=== PATIENT | male | born 1955 | race Caucasian/White ===

== ENCOUNTER → 2016-08-07 | Outpatient (CLI) | payer OTHER, MEDICARE ==
[~2016-08-07] MED LIST: ASPIRIN81 M1 PO; COREG3.125 MG PO; DAYPRO600 M1 PO; DESYREL100 MG PO; DURAGESIC50 MCG/HR TD; FLEXERIL10 MG PO; GABAPENTIN300 MG PO; GABAPENTIN800 MG PO; LASIX40 MG PO; LISINOPRIL10 MG PO; MELOXICAM7.5 MG PO; MS CONTIN15 MG PO; MS CONTIN60 MG PO; NORCO 325 MG-101 TAB PO; NORCO 325 MG-51 TAB PO; NORCO 5-325 TA1 EACH PO; OXYCODONE HCL15 MG PO; OXYCONTIN40 MG PO; OXYCONTIN80 MG PO; PLAVIX75 MG PO; POTASSIUM CHLO20 ME3 PO; PRINIVIL10 MG PO; PROTONIX40 MG PO; RESTORIL15 MG PO; ROBAXIN750 MG PO; THEO-DUR; TIZANIDINE4 MG PO; TRAZODO50 MG PO; VICODIN ES 7501 TAB PO; XANAX XR1 MG PO; XANAX0.5 MG PO; XANAX1 MG; ZOCOR40 MG PO
[2016-08-07 07:47] LABS: URINE AMPHETAMINES < 1000 (1000ng/ml); URINE BARBITURATES < 200 (200ng/ml); URINE COCAINE < 300 (300ng/ml)
== END | disposition home or self-care (01) ==
LOC: LAB 07:06
PROVIDERS: Internal Medicine
DX: F19.10 Other psychoactive substance abuse, uncomplicated (principal)

== ENCOUNTER → 2019-02-25 | Outpatient (CLI) | payer OTHER, MEDICARE | END | disposition home or self-care (01) | LOC: RAD 13:36 | DX: M43.14 Spondylolisthesis, thoracic region (principal); M51.36 Other intervertebral disc degeneration, lumbar region; M50.30 Other cervical disc degeneration, unspecified cervical region; M85.88 Other specified disorders of bone density and structure, other site ==

== ENCOUNTER 2019-06-01 13:45 | Inpatient (IN) | payer OTHER, MEDICARE ==
[~2019-06-01] VITALS: Ht 167.6 cm; Wt 98.1 kg
[2019-06-01 13:46] VITALS: BP 154/69
[2019-06-01 14:31] LABS: BASO # 0.1 10*3/uL (0.0-0.1); BASO % 0.9 % (0.0-1.0); EOS # 0.4 10*3/uL (0.0-0.4); EOS % 4.9 % (1.0-4.0); HEMOGLOBIN 12.9 g/dl (14.0-18.0); LYMPH # 1.6 10*3/uL (1.3-4.4); LYMPH % 21.8 % (27.0-41.0); MEAN CELL VOLUME 92.2 fl (80.0-94.0); MEAN CORPUSCULAR HGB 30.5 pg (27.0-31.0); MEAN CORPUSCULAR HGB CONC 33.1 g/dl (33.0-37.0); MEAN PLATELET VOLUME 11.9 fl (9.6-12.3); MONO # 0.4 10*3/uL (0.1-1.0); MONO % 5.6 % (3.0-9.0); NEUT % 66.5 % (47.0-73.0); PLATELET COUNT AUTOMATED 103 10*3/uL (130-400); RED BLOOD COUNT 4.23 10*6/uL (4.50-5.90); RED CELL DISTRI WIDTH 14.5 % (0-14.5); WHITE BLOOD COUNT 7.5 10*3/uL (4.8-10.8)
[2019-06-01 14:41] LABS: ALBUMIN 2.5 gm/dl (3.1-4.5); ALKALINE PHOSPHATASE 87 U/L (45-117); BUN 6 mg/dl (7-24); CHLORIDE 106 mmol/L (98-107); CREATININE 1.02 mg/dL (0.70-1.30); SGOT/AST 45 IU/L (3-35); SGPT/ALT 28 U/L (12-78); SODIUM 138 mmol/L (136-145); TOTAL PROTEIN 6.2 gm/dL (6.4-8.2)
[2019-06-01 14:42] LABS: ACT PARTIAL THROMBO TIME 32.8 SECONDS (20.0-32.1); INTERNATIONAL NORM RATIO 1.3 (2.0-3.5)
[2019-06-01 15:34] VITALS: BP 164/72
[2019-06-01 17:39] VITALS: BP 180/82
--- NOTE | 2019-06-01 17:39 | NUR ---
CCA 63, admitted to , under the services of XAVIER Wagner DO with a diagnosis of CHRONIC LIVER DISEASE, HYPOALBUMINEMIA, CHRONIC BACK PAIN, EDEMA, ELEVATED LACTIC ACID. Chief complaint is SWELLING TO BLLE. Patient arrived via ambulance from ER. Monitor applied. Initial assessment completed. Vital signs taken and recorded. XAVIER WAGNER DO notified of admission to the unit. Orders received. See assessment for past medical history, medications and allergies. Patient and/or family oriented to unit. [facility] visitation policy reviewed. Clothing/patient valuable form completed. JOSHUA MARTINES
--- NOTE | 2019-06-01 17:53 | NUR ---
CT PREP INITIATED AT THIS TIME PER ORDER.
--- NOTE | 2019-06-01 17:57 | NUR ---
MED LIST PROVIDED BY PATIENTS .
[2019-06-01] MEDS ORDERED: GLIMEPIRIDE4 M1 PO (18:00)
[2019-06-01] MEDS ORDERED: METFORMIN HYD1000 MG PO (18:00)
[2019-06-01] MEDS ORDERED: GABAPENTIN600 MG PO (18:01)
--- NOTE | 2019-06-01 18:11 | NUR ---
ADMISSION PHOTO OBTAINED OF MOLE TO LEFT POSTERIOR SHOULDER.
--- NOTE | 2019-06-01 18:17 | NUR ---
NOTIFIED REGARDING LACTIC ACID.
--- NOTE | 2019-06-01 18:22 | NUR ---
'S ANSWERING SERVICE CALLED REGARDING CONSULT.
--- NOTE | 2019-06-01 18:51 | NUR ---
MED REC UPDATED PER POLICY.
[2019-06-01 20:00] VITALS: BP 152/72
--- NOTE | 2019-06-01 20:00 | NUR ---
RESTING IN BED. RESPIRATIONS EASY. LUNGS DIMINISHED, CLEAR. PULSE OX 99% RA/ +3 PITTING BLE EDEMA. CALL LIGHT WITHIN REACH. FAMILY PRESENT AT BEDSIDE
--- NOTE | 2019-06-01 20:18 | NUR ---
24 HR chart check completed.
[2019-06-01] MEDS ORDERED: PERCOCET 10-321 EACH PO (20:38)
--- NOTE | 2019-06-01 20:55 | NUR ---
PATIENT REQUESTING HOME MEDS, SPECIFICALLY PERCOCET FOR C/O CHRONIC BACK PAIN. DR BROWN CONTACTED AND INFORMED OF REQUEST AND MED REC UP TO DATE
--- NOTE | 2019-06-01 21:00 | NUR ---
DR BROWN NOTIFIED OF CRITICAL LACTIC ACID 3.1
--- NOTE | 2019-06-01 21:03 | NUR ---
REQUESTED AND RECEIVED PERCOCET PER PRN ORDER FOR COMPLAINTS OF LOWER BACK PAIN RATING AN 8. CALL LIGHT WITHIN REACH. WILL MONITOR FOR EFFECTIVENESS
--- NOTE | 2019-06-01 23:10 | NUR ---
REQUESTING RESTORIL PER HOME ROUTINE, DR BROWN CONTACTED AND INFORMED
--- NOTE | 2019-06-01 23:30 | NUR ---
DR BROWN NOTIFIED OF CRITICAL LACTIC 2.6., IMPROVING. PATIENT CURRENTLY RECEIVING IVF
--- NOTE | 2019-06-01 23:34 | NUR ---
REQUESTED AND RECEIVED RESTORIL PER PRN ORDER TO ASSIST WITH SLEEP. WILL MONITOR
[2019-06-02] VITALS: BP 134/63
--- NOTE | 2019-06-02 | NUR ---
MEDS APPEAR EFFECTIVE. SLEEPING. RESPIRATIONS EASY. VSS. IV FLUIDS MAINTAINED. CALL LIGHT WITHIN REACH
--- NOTE | 2019-06-02 03:00 | NUR ---
SLEEPING. IV FLUIDS MAINTAINED
--- NOTE | 2019-06-02 04:42 | NUR ---
REQUESTED AND RECEIVED PERCOCET PER PRN ORDER FOR COMPLAINTS OF BACK PAIN RATING A 10. CALL LIGHT WITHIN REACH. WILL MONITOR FOR EFFECTIVENESS
--- NOTE | 2019-06-02 05:29 | NUR ---
[place] [id number] Please refer to the physician's history and physical for past medical history, comorbid conditions, and allergies. Diagnosis: CHRONIC LIVER DISEASE HYPOALBUMINEMIA Real Score: 18,AT RISK WOUND DESCRIPTIONS: Wound Number: 1 Location of the wound: left posterior shoulder Thickness: Partial Size: 2.2cm x 2.4cm x 0.1cm raised 0.4cm Tunneling: none Undermining: none Sinus Tract: none Presence of Exudate: Sanguineous Amount: Light Color: Red, Purple Odor: None Periwound Skin Appearance: Normal Wound edges: approximated Pain (associated with wound): none at time of assessment How does patient state this happened? pt stated this started over a month ago and he has been treating it at home with antibiotic ointment Surface the patient is resting on: Position Pro SKIN PREVENTION RECOMMENDATION: 1. Pressure redistribution support surface as appropriate 2. Elevate heels 3. Remove boots/TEDS every shift and reapply 4. Head of bed 30 degrees as tolerated 5. Assess nutrition and hydration 6. Manage moisture 7. Avoid the use of containment devices while in bed 8. Use absorptive products on surfaces limit layers of linens on bed 9. Turn and reposition every 1-2 hours in bed and every 1 hour in chair as tolerated 10. Weight shifts every 15 minutes while up in chair 11. Offloading with pillows or device to keep heels elevated off bed 12. Monitor skin at least every shift 13. Inspect under medical devices twice a day WOUND TREATMENT RECOMMENDATIONS: Cleanse left posterior shoulder with nss and apply bactroban and cover with large bandage bid. Patient states that he will follow up with dermatology when he is discharged and will make his own appointment he states he won't forget because his will remind him.
--- NOTE | 2019-06-02 06:00 | NUR ---
RESTING IN BED WITH EYES CLOSED. STATES RELIEF FROM EARLIER MEDS. IV FLUID COMPLETE, HEP LOCKED. CALL LIGHT WITHIN REACH. NO FURTHER VOICED COMPLAINTS
[2019-06-02 06:26] LABS: BASO # 0.1 10*3/uL (0.0-0.1); BASO % 0.9 % (0.0-1.0); EOS # 0.5 10*3/uL (0.0-0.4); EOS % 6.2 % (1.0-4.0); HEMATOCRIT 37.1 % (42.0-52.0); HEMOGLOBIN 12.4 g/dl (14.0-18.0); LYMPH # 2.1 10*3/uL (1.3-4.4); LYMPH % 26.9 % (27.0-41.0); MEAN CELL VOLUME 90.7 fl (80.0-94.0); MEAN CORPUSCULAR HGB 30.3 pg (27.0-31.0); MEAN CORPUSCULAR HGB CONC 33.4 g/dl (33.0-37.0); MONO # 0.8 10*3/uL (0.1-1.0); MONO % 10.2 % (3.0-9.0); NEUT # 4.3 10*3/uL (2.3-7.9); NEUT % 55.7 % (47.0-73.0); PLATELET COUNT AUTOMATED 91 10*3/uL (130-400); RED BLOOD COUNT 4.09 10*6/uL (4.50-5.90); RED CELL DISTRI WIDTH 14.6 % (0-14.5); WHITE BLOOD COUNT 7.8 10*3/uL (4.8-10.8)
[2019-06-02 06:39] LABS: ALBUMIN 2.4 gm/dl (3.1-4.5); ALKALINE PHOSPHATASE 75 U/L (45-117); BUN 4 mg/dl (7-24); CHLORIDE 111 mmol/L (98-107); CHOLESTEROL 103 mg/dL (<200); CREATININE 0.68 mg/dL (0.70-1.30); HDL CHOLESTEROL 51 mg/dl (40-60); LDL CHOLESTEROL 33 mg/dL (9-159); PHOSPHOROUS 2.7 mg/dL (2.5-4.9); POTASSIUM 3.3 mmol/L (3.5-5.1); SGOT/AST 44 IU/L (3-35); SGPT/ALT 26 U/L (12-78); SODIUM 143 mmol/L (136-145); TOTAL PROTEIN 5.6 gm/dL (6.4-8.2); TRIGLYCERIDES 95 mg/dl (<150); VLDL CHOLESTEROL 19 mg/dL (6-40)
[2019-06-02 06:41] LABS: FREE T4 0.99 ng/dl (0.76-1.46)
[2019-06-02 06:45] LABS: THYROID STIM HORMONE (HS) 0.643 uIU/ml (0.358-4.75)
[2019-06-02 07:30] LABS: VITAMIN D, 25-HYDROXY 16.6 ng/mL (30-100)
--- NOTE | 2019-06-02 08:00 | NUR ---
PT RESTING IN BED. RESP-EASY AND REGULAR. PT C/O CHRONIC BACK PAIN. SEE EMAR. MEDICATING PER EMAR. CALL LIGHT IN REACH. BOY MARTIN INTO SEE PT. SEE SHIFT ASSESSMENT.
--- NOTE | 2019-06-02 09:30 | NUR ---
Hemodialysis Patient Care Specialist in to talk to patient. Patient states lives at home with his . There are 0 steps in the home. Physician: Dr. Danny Whittington [facility]acy: [facility] Home health services: none Patient's level of ADLs: MINIMAL ASSIST Patient has working utilities: yes DME: cane Follow-up physician's appointment after d/c: will be made by the hospitalist nurse director upon discharge Does patient want to access PORTAL?: no Discharge plan discussed with patient. He lives at home with his . He is independent in his ADLs and ambulates with a cane. Discussed home health care services and he denies any home needs at this time. When medically stable he will be discharged to home. He states his will provide transportation on discharge. APRYL PETTY
[2019-06-02] MEDS ORDERED: DICLOFENAC SOD75 MG PO (10:07)
[2019-06-02] MEDS ORDERED: MOBIC15 MG PO (10:08)
--- NOTE | 2019-06-02 10:18 | NUR ---
Nutritional Support Services Note: Pt is on a cardiac diet w/ fair intakes. Red wound noted to shoulder. CBW: 213# Ht: 5'5. Staff to continue to encourage good intakes. No other nutrition intervention needed at this time. Will follow if needed. HERBIE Dillon environmental engineering intern
[2019-06-02 12:00] VITALS: BP 143/64
--- NOTE | 2019-06-02 13:00 | NUR ---
PT ASSISTED TO BATHROOM AND BACK TO BED. RESP-EASY AND REGULAR. BED ALARM ON. CALL LIGHT IN REACH.
--- NOTE | 2019-06-02 14:05 | NUR ---
Physical Therapy evaluation completed on 5th floor with full evaluation to follow. Recommend physical therapy per plan of care and SNF/rehab upon discharge. Thank you for this referral. Radha Gonzalez PT
[2019-06-02 16:00] VITALS: BP 134/67
--- NOTE | 2019-06-02 19:10 | NUR ---
24 HR chart check completed.
[2019-06-02 20:00] VITALS: BP 144/62
--- NOTE | 2019-06-02 20:00 | NUR ---
RESTING IN BED WITH NO ACUTE DISTRESS NOTED. RESPIRATIONS EASY. LUNGS DIMINISHED, CLEAR. PULSE OX 98% RA. +1 BLE EDEMA. CALL LIGHT WITHIN REACH. NO VOICED COMPLAINTS
--- NOTE | 2019-06-02 22:31 | NUR ---
REQUESTED AND RECEIVED OXY AND RESTORIL PER PRN ORDER FOR COMPLAINTS OF LOWER BACK PAIN RATING AN 8 AND TO ASSIST WITH SLEEP. CALL LIGHT WITHIN REACH. WILL MONITOR
[2019-06-03] VITALS: BP 143/63
--- NOTE | 2019-06-03 | NUR ---
MEDS EFFECTIVE. SLEEPING. RESPIRATIONS EASY. VSS. CALL LIGHT WITHIN REACH.
--- NOTE | 2019-06-03 06:00 | NUR ---
SLEPT THROUGHOUT NIGHT WITH NO ACUTE DISTRESS NOTED. RESPIRATIONS EASY. CALL LIGHT WITHIN REACH. NO VOICED COMPLAINTS THIS SHIFT
[2019-06-03 08:00] VITALS: BP 138/66
[2019-06-03 08:14] LABS: BASO # 0.1 10*3/uL (0.0-0.1); BASO % 0.8 % (0.0-1.0); EOS # 0.4 10*3/uL (0.0-0.4); HEMATOCRIT 36.2 % (42.0-52.0); HEMOGLOBIN 12.3 g/dl (14.0-18.0); LYMPH # 1.9 10*3/uL (1.3-4.4); MEAN CORPUSCULAR HGB 30.6 pg (27.0-31.0); MONO # 0.8 10*3/uL (0.1-1.0); MONO % 10.5 % (3.0-9.0); NEUT # 4.3 10*3/uL (2.3-7.9); NEUT % 57.4 % (47.0-73.0); PLATELET COUNT AUTOMATED 84 10*3/uL (130-400); RED BLOOD COUNT 4.02 10*6/uL (4.50-5.90); RED CELL DISTRI WIDTH 14.6 % (0-14.5); WHITE BLOOD COUNT 7.5 10*3/uL (4.8-10.8)
--- NOTE | 2019-06-03 08:30 | NUR ---
PT RESTING IN BED. RESP-EASY AND REGULAR. C/O BACK PAIN, RATES PAIN 10 ON PAIN SCALE 0-10. MEDICATED WITH OXYCODONE PO PER ORDER, SEE EMAR. CALL LIGHT IN REACH. SEE SHIFT ASSESSMENT.
[2019-06-03 08:34] LABS: ALBUMIN 2.2 gm/dl (3.1-4.5); BUN 5 mg/dl (7-24); CHLORIDE 108 mmol/L (98-107); CREATININE 0.77 mg/dL (0.70-1.30); PHOSPHOROUS 3.2 mg/dL (2.5-4.9); POTASSIUM 3.1 mmol/L (3.5-5.1); SODIUM 142 mmol/L (136-145)
--- NOTE | 2019-06-03 09:20 | NUR ---
RESTING IN BED. STATES PAIN MEDICATION HELPS SOME. CALL LIGHT IN REACH.
[2019-06-03] MEDS ORDERED: POTASSIUM CHLO20 ME4 PO (10:29)
--- NOTE | 2019-06-03 10:30 | NUR ---
PT BATHED AND SITTING UP IN RECLINER. TOLERATED POTASSIUM, SEE EMAR. NO C/O AT THIS TIME. CALL LIGHT IN REACH.
--- NOTE | 2019-06-03 11:04 | NUR ---
PHYSICAL THERAPY TREATMENT TIME: 10:50 AM- 11:08 AM 18 MINUTES TOTAL Patient presented to therapy insitting in bedside chair with report of pain in the low back and knees that won't straighten from an accident some years ago. Patient says his pain level in the low back is about a 5/10. Patient did have pain meds earlier this morning. Patient performed sit to stand out of a bedside chair with CGA. Patient ambulated with Wh Walker and CGA X 1 for 15' x 1 with verbal cues for upright posture, keeping knees as extended as possible and increasing step-length. Patient cannot lock knees into extension because of an accident some years ago when a steel beam fell on his legs. Patient required rolling chair being brought up behind him at the end of the 15' distance. Patient then performed x15 LAQs on each LE for strengthening the Quads. Patient was left in bedside chair with call light within reach and LEs in low postion. Patient was 1:1 with this DIE MAKER STAMPING for 18 minutes total. SANDIP INMAN DIE MAKER STAMPING
--- NOTE | 2019-06-03 11:30 | NUR ---
BSG-178, SEE EMAR. SKIN W/D. NO C/O AT THIS TIME. CALL LIGHT IN REACH.
[2019-06-03 12:00] VITALS: BP 123/52
--- NOTE | 2019-06-03 13:00 | NUR ---
SITTING UP IN RECLINER. TOLERATED ROUTINE MED WITH NO PROBLEM. CALL LIGHT IN REACH.
--- NOTE | 2019-06-03 13:10 | NUR ---
PHYSICAL THERAPY TREATMENT TIME: 1:12 PM Patient declined treatment this afternoon due to not feeling well and being tired. Will check back with patient at a later date. SANDIP INMAN ECOLOGIST TECHNICIAN
--- NOTE | 2019-06-03 15:55 | NUR ---
PT MEDICATED WITH ROUTINE OXYCODONE PO PER ORDER, SEE EMAR. FOR C/O BACK PAIN, RATES PAIN 6 ON PAIN SCALE 0-10. CALL LIGHT IN REACH. SEE SHIFT ASSESSMENT.
[2019-06-03 16:00] VITALS: BP 130/82
--- NOTE | 2019-06-03 19:10 | NUR ---
REPORT RECEIVED FROM DAYLIGHT NURSE. PT VISITING WITH FAMILY MEMBERS AT THIS TIME. CALL LIGHT IN REACH
[2019-06-03 20:00] VITALS: BP 127/58
--- NOTE | 2019-06-03 21:00 | NUR ---
PT LYING IN BED, WATCHING TV AT THIS TIME. VOICES NO COMPLAINTS, CALL LIGHT IN REACH
--- NOTE | 2019-06-03 21:43 | NUR ---
RESTORIL GIVEN AT THIS TIME FOR COMPLAINTS OF INSOMNIA. CALL LIGHT IN REACH
--- NOTE | 2019-06-03 23:00 | NUR ---
PT LYING IN BED AT THIS TIME. CALL LIGHT IN REACH
[2019-06-04] VITALS: BP 127/59
--- NOTE | 2019-06-04 | NUR ---
RESTORIL EFFECTIVE, PT SLEEPING
--- NOTE | 2019-06-04 01:00 | NUR ---
OXY APPEARS EFFECTIVE. PT SLEEPING AT THIS TIME.
--- NOTE | 2019-06-04 04:00 | NUR ---
24 HR chart check completed.
[2019-06-04 06:43] LABS: ALBUMIN 2.2 gm/dl (3.1-4.5); BUN 5 mg/dl (7-24); CHLORIDE 108 mmol/L (98-107); CREATININE 0.73 mg/dL (0.70-1.30); PHOSPHOROUS 3.2 mg/dL (2.5-4.9); POTASSIUM 3.3 mmol/L (3.5-5.1); SODIUM 140 mmol/L (136-145)
[2019-06-04 08:00] VITALS: BP 134/64
--- NOTE | 2019-06-04 08:00 | NUR ---
PT SITTING UP IN BED. C/O BACK PAIN, RATES PAIN 10 ON PAIN SCALE 0-10. MEDICATED WITH OXYCODONE PO PER ORDER, SEE EMAR. CALL LIGHT IN REACH. SEE SHIFT ASSESSMENT. BED ALARM ON.
--- NOTE | 2019-06-04 09:00 | NUR ---
Letter Carrier in to see patient. Discussed home health care services and he denies any home needs at this time, He states his legs feel much better. He is able to get up and move around and will be fine at home with his . When medically stable he will be discharged to home.
--- NOTE | 2019-06-04 09:00 | NUR ---
RESTING IN BED. RESP-EASY AND REGULAR. STATES MEDICATION HELPED. CALL LIGHT IN REACH.
--- NOTE | 2019-06-04 09:36 | NUR ---
PHYSICAL THERAPY TREATMENT TIME: OUT 09:35 AM 14 MINUTES TOTAL Patient presented to therapy in sitting position in bedside chair with report of no pain and feeling better overall. Patient gives informed consent for treatment. Patient was identified by name and on wristband. Patient completed sit to stand from LOW CHAIR with SBA. Patient ambulated 40' x 1 with Wh Walker and Close Supervision with no LOB and no SOB. Patient RETRO-AMBULATION with Wh Walker SBA to bedside chair where he sat with SBA. Patient was left in bedside chair with call light within reach. Patient was 1:1 with this DAMAGE INSIDE ADJUSTER 14 minutes total. SANDIP INMAN DAMAGE INSIDE ADJUSTER
--- NOTE | 2019-06-04 10:37 | NUR ---
DR. MOLINA ON FLOOR TO SEE PT. OK TO DISCHARGE PER HIS STANDPOINT
[2019-06-04 12:00] VITALS: BP 136/64
[2019-06-04] MEDS ORDERED: BUMETANIDE1 MG PO (13:49)
[2019-06-04] MEDS ORDERED: OXYCODONE HCL10 M1 PO (15:14)
--- NOTE | 2019-06-04 17:10 | NUR ---
MEDICATED WITH OXYCODONE PO FOR BACK PAIN, RATES PAIN 10 ON PAIN SCALE 0-10. SEE EMAR. CALL LIGHT IN REACH.
--- NOTE | 2019-06-04 17:16 | NUR ---
Discharge instructions reviewed with patient/family. Patient receptive and verbalizes understanding. Follow-up care arranged. Written instructions given to patient/family. HEPLOCK REMOVED 2X2 APPLIED. MONITOR REMOVED. ESCORTED VIA WHEELCHAIR FOR DISCHARGE WITH VISITORS AT THIS TIME. TAN SINGH R
--- NOTE | 2019-06-05 10:35 | NUR ---
Bridgette from the [employer] insurance called and stated they have only approved 06/01/19 and 06/12/19 as observation only. She requested additional clinicals to reevaluate. Additional clinicals faxed to [phone]
--- NOTE | 2019-06-08 07:52 | NUR ---
PHYSICAL THERAPY CO-SIGN I approve of the Physical Therapy notes written above. Radha Gonzalez PT
== END 2019-06-04 17:16 | disposition home or self-care (01) | DRG 291 ==
LOC: ED 13:45 → 5E 15:45 → EDHOLD 15:45 → 5E 15:54
PROVIDERS: Internal Medicine; Registered Nurse; ADMIT Family Medicine
DX: I11.0 Hypertensive heart disease with heart failure (principal); E43 Unspecified severe protein-calorie malnutrition; I50.33 Acute on chronic diastolic (congestive) heart failure; K76.9 Liver disease, unspecified; E88.09 Other disorders of plasma-protein metabolism, not elsewhere classified; M54.9 Dorsalgia, unspecified; I25.10 Atherosclerotic heart disease of native coronary artery without angina pectoris; G89.29 Other chronic pain; M54.2 Cervicalgia; D64.9 Anemia, unspecified; R73.9 Hyperglycemia, unspecified; E87.6 Hypokalemia; E66.9 Obesity, unspecified; D69.6 Thrombocytopenia, unspecified; Z88.8 Allergy status to other drugs, medicaments and biological substances; Z68.35 Body mass index [BMI] 35.0-35.9, adult; Z79.82 Long term (current) use of aspirin; Z79.899 Other long term (current) drug therapy; I25.2 Old myocardial infarction; Z95.5 Presence of coronary angioplasty implant and graft; Z87.891 Personal history of nicotine dependence; Z82.49 Family history of ischemic heart disease and other diseases of the circulatory system; Z82.0 Family history of epilepsy and other diseases of the nervous system

== ENCOUNTER → 2019-11-18 | Outpatient (CLI) | payer OTHER, MEDICARE ==
[~2019-11-18] MED LIST changes: +BUMETANIDE1 MG PO; +DICLOFENAC SOD75 MG PO; +GABAPENTIN600 MG PO; +GLIMEPIRIDE4 M1 PO; +METFORMIN HYD1000 MG PO; +MOBIC15 MG PO; +OXYCODONE HCL10 M1 PO; +PERCOCET 10-321 EACH PO; +POTASSIUM CHLO20 ME4 PO
== END | disposition home or self-care (01) ==
LOC: US 06:30
PROVIDERS: ATTEND Internal Medicine
DX: R18.8 Other ascites (principal); K46.9 Unspecified abdominal hernia without obstruction or gangrene

== ENCOUNTER 2020-04-08 10:22 | Inpatient (IN) | payer OTHER, MEDICARE ==
[~2020-04-08] VITALS: Ht 177.8 cm; Wt 98.2 kg
[2020-04-08 10:26] VITALS: BP 128/57
[2020-04-08 10:51] LABS: BASO % 0.4 % (0.0-1.0); EOS # 0.1 10*3/uL (0.0-0.4); HEMATOCRIT 35.4 % (42.0-52.0); LYMPH # 1.3 10*3/uL (1.3-4.4); LYMPH % 12.4 % (27.0-41.0); MEAN CELL VOLUME 88.7 fl (80.0-94.0); MEAN CORPUSCULAR HGB 29.6 pg (27.0-31.0); MEAN CORPUSCULAR HGB CONC 33.3 g/dl (33.0-37.0); MEAN PLATELET VOLUME 11.3 fl (9.6-12.3); MONO # 1.1 10*3/uL (0.1-1.0); MONO % 10.1 % (3.0-9.0); NEUT # 8.1 10*3/uL (2.3-7.9); NEUT % 75.5 % (47.0-73.0); PLATELET COUNT AUTOMATED 123 10*3/uL (130-400); RED BLOOD COUNT 3.99 10*6/uL (4.50-5.90); RED CELL DISTRI WIDTH 14.3 % (0-14.5); WHITE BLOOD COUNT 10.7 10*3/uL (4.8-10.8)
[2020-04-08 10:59] LABS: INTERNATIONAL NORM RATIO 1.3 (2.0-3.5)
[2020-04-08 11:05] LABS: ALBUMIN 2.1 gm/dl (3.1-4.5); ALKALINE PHOSPHATASE 141 U/L (45-117); BUN 13 mg/dl (7-24); CHLORIDE 97 mmol/L (98-107); CREATININE 1.19 mg/dL (0.70-1.30); POTASSIUM 3.9 mmol/L (3.5-5.1); SGOT/AST 76 IU/L (3-35); SGPT/ALT 28 U/L (12-78); SODIUM 134 mmol/L (136-145); TOTAL PROTEIN 6.1 gm/dL (6.4-8.2)
[2020-04-08 12:16] VITALS: BP 126/62
[2020-04-08 13:30] VITALS: BP 133/57
[2020-04-08 16:00] VITALS: BP 152/98
[2020-04-08] MEDS ORDERED: LASIX40 MG PO (17:17)
[2020-04-08] MEDS ORDERED: POTASSIUM CHLO20 ME3 PO (17:20)
[2020-04-08] MEDS ORDERED: OXYCODONE HCL5 M1 PO (19:08)
[2020-04-08 20:00] VITALS: BP 141/70
[2020-04-09] VITALS (7 sets, daily range): BP systolic 122–148; BP diastolic 53–75
[2020-04-09 05:02] LABS: BASO # 0.1 10*3/uL (0.0-0.1); BASO % 0.8 % (0.0-1.0); EOS # 0.2 10*3/uL (0.0-0.4); EOS % 2.4 % (1.0-4.0); HEMATOCRIT 33.1 % (42.0-52.0); LYMPH # 1.3 10*3/uL (1.3-4.4); LYMPH % 14.3 % (27.0-41.0); MEAN CELL VOLUME 88.5 fl (80.0-94.0); MEAN CORPUSCULAR HGB 29.4 pg (27.0-31.0); MEAN CORPUSCULAR HGB CONC 33.2 g/dl (33.0-37.0); MONO # 1.1 10*3/uL (0.1-1.0); MONO % 12.3 % (3.0-9.0); NEUT # 6.3 10*3/uL (2.3-7.9); NEUT % 69.8 % (47.0-73.0); PLATELET COUNT AUTOMATED 114 10*3/uL (130-400); RED BLOOD COUNT 3.74 10*6/uL (4.50-5.90); RED CELL DISTRI WIDTH 14.3 % (0-14.5); WHITE BLOOD COUNT 9.1 10*3/uL (4.8-10.8)
[2020-04-09 05:34] LABS: ALBUMIN 1.8 gm/dl (3.1-4.5); ALKALINE PHOSPHATASE 123 U/L (45-117); BUN 11 mg/dl (7-24); CHLORIDE 103 mmol/L (98-107); CREATININE 0.83 mg/dL (0.70-1.30); POTASSIUM 3.1 mmol/L (3.5-5.1); SGOT/AST 66 IU/L (3-35); SGPT/ALT 25 U/L (12-78); SODIUM 135 mmol/L (136-145); TOTAL PROTEIN 5.5 gm/dL (6.4-8.2)
[2020-04-09 05:40] LABS: BILIRUBIN 2+ (Negative); BLOOD Negative (Negative); CLARITY Clear (Clear); COLOR Orange (Yellow); GLUCOSE Negative (Negative); KETONE Negative (Negative); LEUKO ESTERASE Trace (Negative); NITRITE Positive (Negative); PH 5.5 (4.5-8.0); SPECIFIC GRAVITY 1.025 (1.001-1.030)
[2020-04-09 06:06] LABS: BACTERIA 1+; EPITHELIAL CELLS 0-2; RBC 0-2 rbc/hpf (0-2)
[2020-04-09 06:07] LABS: MUCOUS 2+
[2020-04-10] VITALS: BP 151/73
[2020-04-10 05:18] LABS: ALBUMIN 1.8 gm/dl (3.1-4.5); ALKALINE PHOSPHATASE 126 U/L (45-117); BUN 10 mg/dl (7-24); CHLORIDE 102 mmol/L (98-107); POTASSIUM 3.6 mmol/L (3.5-5.1); SGOT/AST 59 IU/L (3-35); SGPT/ALT 24 U/L (12-78); SODIUM 134 mmol/L (136-145); TOTAL PROTEIN 5.6 gm/dL (6.4-8.2)
[2020-04-10 06:22] LABS: BASO # 0.1 10*3/uL (0.0-0.1); BASO % 0.7 % (0.0-1.0); EOS # 0.4 10*3/uL (0.0-0.4); EOS % 3.7 % (1.0-4.0); LYMPH # 1.9 10*3/uL (1.3-4.4); LYMPH % 16.2 % (27.0-41.0); MEAN CELL VOLUME 90.9 fl (80.0-94.0); MEAN CORPUSCULAR HGB 30.2 pg (27.0-31.0); MEAN CORPUSCULAR HGB CONC 33.2 g/dl (33.0-37.0); MEAN PLATELET VOLUME 11.6 fl (9.6-12.3); MONO # 1.4 10*3/uL (0.1-1.0); MONO % 12.3 % (3.0-9.0); NEUT # 7.8 10*3/uL (2.3-7.9); NEUT % 66.6 % (47.0-73.0); PLATELET COUNT AUTOMATED 134 10*3/uL (130-400); RED BLOOD COUNT 3.74 10*6/uL (4.50-5.90); RED CELL DISTRI WIDTH 14.6 % (0-14.5); WHITE BLOOD COUNT 11.7 10*3/uL (4.8-10.8)
[2020-04-10 08:00] VITALS: BP 119/62
[2020-04-10 12:00] VITALS: BP 127/56
[2020-04-10 16:00] VITALS: BP 127/56; BP 141/59
[2020-04-10 20:00] VITALS: BP 131/65
[2020-04-11] VITALS: BP 129/57
[2020-04-11 06:56] LABS: BASO # 0.1 10*3/uL (0.0-0.1); BASO % 0.6 % (0.0-1.0); EOS # 0.5 10*3/uL (0.0-0.4); EOS % 4.4 % (1.0-4.0); HEMATOCRIT 32.8 % (42.0-52.0); LYMPH # 1.5 10*3/uL (1.3-4.4); LYMPH % 13.7 % (27.0-41.0); MEAN CELL VOLUME 88.4 fl (80.0-94.0); MEAN CORPUSCULAR HGB 29.6 pg (27.0-31.0); MEAN CORPUSCULAR HGB CONC 33.5 g/dl (33.0-37.0); MEAN PLATELET VOLUME 11.2 fl (9.6-12.3); MONO # 1.3 10*3/uL (0.1-1.0); MONO % 11.2 % (3.0-9.0); NEUT # 7.8 10*3/uL (2.3-7.9); NEUT % 69.4 % (47.0-73.0); PLATELET COUNT AUTOMATED 123 10*3/uL (130-400); RED BLOOD COUNT 3.71 10*6/uL (4.50-5.90); RED CELL DISTRI WIDTH 14.5 % (0-14.5); WHITE BLOOD COUNT 11.3 10*3/uL (4.8-10.8)
[2020-04-11 07:21] LABS: ALBUMIN 1.6 gm/dl (3.1-4.5); ALKALINE PHOSPHATASE 115 U/L (45-117); BUN 10 mg/dl (7-24); CHLORIDE 105 mmol/L (98-107); CREATININE 0.76 mg/dL (0.70-1.30); POTASSIUM 3.4 mmol/L (3.5-5.1); SGOT/AST 44 IU/L (3-35); SGPT/ALT 22 U/L (12-78); SODIUM 136 mmol/L (136-145); TOTAL PROTEIN 5.2 gm/dL (6.4-8.2)
[2020-04-11 08:00] VITALS: BP 151/66
[2020-04-11 12:00] VITALS: BP 155/65
[2020-04-11 16:00] VITALS: BP 130/68
[2020-04-11 20:00] VITALS: BP 136/76
[2020-04-12] VITALS: BP 139/70
[2020-04-12 03:06] LABS: HEP B CORE AB, IGM Negative (Negative); HEPATITIS B SURFACE AG Negative (Negative); HEPATITIS C VIRUS ANTIBODY 0.1 s/co (0.0-0.9)
[2020-04-12 07:09] LABS: BASO # 0.1 10*3/uL (0.0-0.1); BASO % 0.8 % (0.0-1.0); EOS # 0.8 10*3/uL (0.0-0.4); EOS % 8.6 % (1.0-4.0); HEMATOCRIT 32.3 % (42.0-52.0); LYMPH # 1.4 10*3/uL (1.3-4.4); LYMPH % 15.5 % (27.0-41.0); MEAN CELL VOLUME 89.2 fl (80.0-94.0); MEAN CORPUSCULAR HGB 29.8 pg (27.0-31.0); MEAN CORPUSCULAR HGB CONC 33.4 g/dl (33.0-37.0); MEAN PLATELET VOLUME 11.3 fl (9.6-12.3); MONO # 1.2 10*3/uL (0.1-1.0); MONO % 12.6 % (3.0-9.0); NEUT # 5.8 10*3/uL (2.3-7.9); NEUT % 62.1 % (47.0-73.0); PLATELET COUNT AUTOMATED 103 10*3/uL (130-400); RED BLOOD COUNT 3.62 10*6/uL (4.50-5.90); RED CELL DISTRI WIDTH 14.8 % (0-14.5); WHITE BLOOD COUNT 9.3 10*3/uL (4.8-10.8)
[2020-04-12 07:15] LABS: CHLORIDE 104 mmol/L (98-107); SODIUM 137 mmol/L (136-145)
[2020-04-12 07:25] LABS: ALBUMIN 1.6 gm/dl (3.1-4.5); ALKALINE PHOSPHATASE 106 U/L (45-117); BUN 10 mg/dl (7-24); CREATININE 0.77 mg/dL (0.70-1.30); SGOT/AST 39 IU/L (3-35); SGPT/ALT 19 U/L (12-78); TOTAL PROTEIN 5.2 gm/dL (6.4-8.2)
[2020-04-12 08:00] VITALS: BP 134/58
[2020-04-12 12:00] VITALS: BP 147/82
[2020-04-12 16:00] VITALS: BP 136/58
[2020-04-12 20:00] VITALS: BP 126/55
[2020-04-13] VITALS (9 sets, daily range): BP systolic 95–139; BP diastolic 43–70
[2020-04-13 06:28] LABS: BASO # 0.1 10*3/uL (0.0-0.1); EOS # 0.8 10*3/uL (0.0-0.4); EOS % 8.8 % (1.0-4.0); HEMATOCRIT 33.5 % (42.0-52.0); LYMPH # 1.8 10*3/uL (1.3-4.4); LYMPH % 19.8 % (27.0-41.0); MEAN CELL VOLUME 89.3 fl (80.0-94.0); MEAN CORPUSCULAR HGB 29.9 pg (27.0-31.0); MEAN CORPUSCULAR HGB CONC 33.4 g/dl (33.0-37.0); MONO # 1.2 10*3/uL (0.1-1.0); MONO % 12.9 % (3.0-9.0); NEUT # 5.2 10*3/uL (2.3-7.9); NEUT % 57.1 % (47.0-73.0); PLATELET COUNT AUTOMATED 106 10*3/uL (130-400); RED BLOOD COUNT 3.75 10*6/uL (4.50-5.90); RED CELL DISTRI WIDTH 14.9 % (0-14.5); WHITE BLOOD COUNT 9.1 10*3/uL (4.8-10.8)
[2020-04-13 06:48] LABS: BUN 9 mg/dl (7-24); CHLORIDE 105 mmol/L (98-107); CREATININE 0.71 mg/dL (0.70-1.30); POTASSIUM 3.3 mmol/L (3.5-5.1); SODIUM 137 mmol/L (136-145)
[2020-04-14] VITALS: BP 138/70
[2020-04-14 07:21] LABS: BUN 9 mg/dl (7-24); CHLORIDE 108 mmol/L (98-107); CREATININE 0.69 mg/dL (0.70-1.30); POTASSIUM 3.9 mmol/L (3.5-5.1); SODIUM 140 mmol/L (136-145)
[2020-04-14 08:00] VITALS: BP 134/66
[2020-04-14 12:00] VITALS: BP 139/62
[2020-04-14 16:00] VITALS: BP 150/72
[2020-04-14 20:00] VITALS: BP 128/65
[2020-04-15] VITALS (7 sets, daily range): BP systolic 131–151; BP diastolic 58–89
[2020-04-15 07:21] LABS: BASO # 0.1 10*3/uL (0.0-0.1); BASO % 1.4 % (0.0-1.0); EOS # 0.8 10*3/uL (0.0-0.4); EOS % 10.8 % (1.0-4.0); HEMATOCRIT 36.5 % (42.0-52.0); LYMPH # 1.6 10*3/uL (1.3-4.4); LYMPH % 22.2 % (27.0-41.0); MEAN CELL VOLUME 90.8 fl (80.0-94.0); MEAN CORPUSCULAR HGB 29.9 pg (27.0-31.0); MEAN CORPUSCULAR HGB CONC 32.9 g/dl (33.0-37.0); MEAN PLATELET VOLUME 11.2 fl (9.6-12.3); MONO # 0.9 10*3/uL (0.1-1.0); MONO % 11.8 % (3.0-9.0); NEUT # 3.8 10*3/uL (2.3-7.9); NEUT % 53.1 % (47.0-73.0); PLATELET COUNT AUTOMATED 112 10*3/uL (130-400); RED BLOOD COUNT 4.02 10*6/uL (4.50-5.90); RED CELL DISTRI WIDTH 14.6 % (0-14.5); WHITE BLOOD COUNT 7.2 10*3/uL (4.8-10.8)
[2020-04-15 07:35] LABS: BUN 7 mg/dl (7-24); CHLORIDE 106 mmol/L (98-107); CREATININE 0.73 mg/dL (0.70-1.30); POTASSIUM 3.4 mmol/L (3.5-5.1); SODIUM 136 mmol/L (136-145)
[2020-04-16 02:00] VITALS: BP 143/74
[2020-04-16 07:19] LABS: BASO # 0.1 10*3/uL (0.0-0.1); BASO % 1.3 % (0.0-1.0); EOS # 0.6 10*3/uL (0.0-0.4); HEMATOCRIT 33.6 % (42.0-52.0); LYMPH # 1.5 10*3/uL (1.3-4.4); LYMPH % 21.1 % (27.0-41.0); MEAN CELL VOLUME 90.8 fl (80.0-94.0); MEAN PLATELET VOLUME 10.9 fl (9.6-12.3); MONO # 0.8 10*3/uL (0.1-1.0); NEUT # 4.1 10*3/uL (2.3-7.9); NEUT % 57.7 % (47.0-73.0); PLATELET COUNT AUTOMATED 116 10*3/uL (130-400); RED CELL DISTRI WIDTH 14.9 % (0-14.5)
[2020-04-16 07:35] LABS: BUN 5 mg/dl (7-24); CHLORIDE 108 mmol/L (98-107); CREATININE 0.72 mg/dL (0.70-1.30); POTASSIUM 3.3 mmol/L (3.5-5.1); SODIUM 138 mmol/L (136-145)
[2020-04-16 08:00] VITALS: BP 137/69
[2020-04-16 12:00] VITALS: BP 138/70
[2020-04-16] MEDS ORDERED: LACTULOSE20 GM/30 M PO (12:52)
[2020-04-16] MEDS ORDERED: ZITHROMAX250 MG PO ×2 (12:52)
== END 2020-04-16 15:52 | disposition home or self-care (01) | DRG 393 ==
LOC: ED 10:22 → EDHOLD 11:35 → 5E 11:35 → 4E 11:35 → 5E 12:11 → 4E 04-09 04:44 → 5E 04-13 07:35
PROVIDERS: Internal Medicine; Physical Therapist; Student in an Organized Health Care Education/Training Program; ADMIT Family Medicine; ATTEND Family Medicine
PROC: 0D9670Z Drainage of Stomach with Drainage Device, Via Natural or Artificial Opening (ICD-10-PCS; 2020-04-08)
PROC: 0DB68ZX Excision of Stomach, Via Natural or Artificial Opening Endoscopic, Diagnostic (ICD-10-PCS; 2020-04-13)
PROC: 0DJD8ZZ Inspection of Lower Intestinal Tract, Via Natural or Artificial Opening Endoscopic (ICD-10-PCS; principal; 2020-04-15)
DX: K40.30 Unilateral inguinal hernia, with obstruction, without gangrene, not specified as recurrent (principal); J18.9 Pneumonia, unspecified organism; E87.2 Acidosis; E87.1 Hypo-osmolality and hyponatremia; J98.11 Atelectasis; E44.0 Moderate protein-calorie malnutrition; I85.00 Esophageal varices without bleeding; R18.8 Other ascites; E87.8 Other disorders of electrolyte and fluid balance, not elsewhere classified; D64.9 Anemia, unspecified; R74.01 Elevation of levels of liver transaminase levels; D69.6 Thrombocytopenia, unspecified; I10 Essential (primary) hypertension; I25.10 Atherosclerotic heart disease of native coronary artery without angina pectoris; E11.40 Type 2 diabetes mellitus with diabetic neuropathy, unspecified; E11.649 Type 2 diabetes mellitus with hypoglycemia without coma; K29.00 Acute gastritis without bleeding; Z20.822 Contact with and (suspected) exposure to COVID-19; E80.6 Other disorders of bilirubin metabolism; E78.5 Hyperlipidemia, unspecified; M54.5 Low back pain; G89.29 Other chronic pain; K74.60 Unspecified cirrhosis of liver; Z95.5 Presence of coronary angioplasty implant and graft; Z82.49 Family history of ischemic heart disease and other diseases of the circulatory system; Z81.8 Family history of other mental and behavioral disorders; Z88.6 Allergy status to analgesic agent; Z88.8 Allergy status to other drugs, medicaments and biological substances; Z68.33 Body mass index [BMI] 33.0-33.9, adult

== ENCOUNTER 2020-04-19 11:46 | Observation (INO) | payer OTHER, MEDICARE ==
[~2020-04-19] VITALS: Ht 165.1 cm; Wt 103.6 kg
[~2020-04-19 11:46] MED LIST changes: +LACTULOSE20 GM/30 M PO; +OXYCODONE HCL5 M1 PO; +ZITHROMAX250 MG PO
[2020-04-19 12:48] LABS: BASO # 0.1 10*3/uL (0.0-0.1); BASO % 0.9 % (0.0-1.0); EOS # 0.2 10*3/uL (0.0-0.4); EOS % 2.3 % (1.0-4.0); HEMATOCRIT 36.8 % (42.0-52.0); LYMPH # 1.8 10*3/uL (1.3-4.4); LYMPH % 16.7 % (27.0-41.0); MEAN CORPUSCULAR HGB 29.6 pg (27.0-31.0); MEAN CORPUSCULAR HGB CONC 32.9 g/dl (33.0-37.0); MEAN PLATELET VOLUME 11.3 fl (9.6-12.3); MONO # 0.5 10*3/uL (0.1-1.0); MONO % 5.1 % (3.0-9.0); NEUT # 7.8 10*3/uL (2.3-7.9); NEUT % 74.1 % (47.0-73.0); PLATELET COUNT AUTOMATED 180 10*3/uL (130-400); RED BLOOD COUNT 4.09 10*6/uL (4.50-5.90); RED CELL DISTRI WIDTH 14.9 % (0-14.5); WHITE BLOOD COUNT 10.6 10*3/uL (4.8-10.8)
[2020-04-19 13:03] LABS: ALBUMIN 1.8 gm/dl (3.1-4.5); ALKALINE PHOSPHATASE 140 U/L (45-117); BUN 8 mg/dl (7-24); CHLORIDE 107 mmol/L (98-107); CPK 106 U/L (39-308); CREATININE 0.75 mg/dL (0.70-1.30); SGOT/AST 70 IU/L (3-35); SGPT/ALT 33 U/L (12-78); SODIUM 138 mmol/L (136-145)
[2020-04-19 13:27] VITALS: BP 114/45
[2020-04-19 14:23] VITALS: BP 135/80
[2020-04-19 15:32] LABS: INTERNATIONAL NORM RATIO 1.7 (2.0-3.5)
[2020-04-19 20:00] VITALS: BP 131/75
[2020-04-20] VITALS: BP 122/59
[2020-04-20 05:00] LABS: BILIRUBIN 1+ (Negative); BLOOD Negative (Negative); CLARITY Clear (Clear); COLOR Orange (Yellow); GLUCOSE Negative (Negative); KETONE Trace (Negative); LEUKO ESTERASE 1+ (Negative); NITRITE Negative (Negative); SPECIFIC GRAVITY 1.015 (1.001-1.030)
[2020-04-20 05:23] LABS: BACTERIA TRACE; MUCOUS 2+
[2020-04-20 06:34] LABS: BASO # 0.1 10*3/uL (0.0-0.1); BASO % 0.6 % (0.0-1.0); EOS # 0.3 10*3/uL (0.0-0.4); EOS % 2.1 % (1.0-4.0); HEMATOCRIT 31.3 % (42.0-52.0); LYMPH % 12.9 % (27.0-41.0); MEAN CELL VOLUME 90.2 fl (80.0-94.0); MEAN CORPUSCULAR HGB 29.7 pg (27.0-31.0); MEAN CORPUSCULAR HGB CONC 32.9 g/dl (33.0-37.0); MEAN PLATELET VOLUME 11.3 fl (9.6-12.3); MONO # 1.1 10*3/uL (0.1-1.0); MONO % 7.2 % (3.0-9.0); NEUT # 11.9 10*3/uL (2.3-7.9); NEUT % 76.7 % (47.0-73.0); PLATELET COUNT AUTOMATED 152 10*3/uL (130-400); RED BLOOD COUNT 3.47 10*6/uL (4.50-5.90); RED CELL DISTRI WIDTH 15.5 % (0-14.5); WHITE BLOOD COUNT 15.6 10*3/uL (4.8-10.8)
[2020-04-20 06:49] LABS: ALBUMIN 1.6 gm/dl (3.1-4.5); ALKALINE PHOSPHATASE 126 U/L (45-117); BUN 11 mg/dl (7-24); CHLORIDE 105 mmol/L (98-107); CREATININE 1.06 mg/dL (0.70-1.30); POTASSIUM 3.7 mmol/L (3.5-5.1); SGOT/AST 52 IU/L (3-35); SGPT/ALT 28 U/L (12-78); SODIUM 137 mmol/L (136-145); TOTAL PROTEIN 4.9 gm/dL (6.4-8.2)
[2020-04-20 07:43] VITALS: BP 112/60
[2020-04-20 08:00] VITALS: BP 121/53
[2020-04-20 11:59] VITALS: BP 110/64
[2020-04-20 16:00] VITALS: BP 123/51
[2020-04-20 20:00] VITALS: BP 118/60
[2020-04-21] VITALS (15 sets, daily range): BP systolic 106–128; BP diastolic 45–68
[2020-04-21 07:03] LABS: BASO # 0.1 10*3/uL (0.0-0.1); BASO % 0.9 % (0.0-1.0); EOS # 0.2 10*3/uL (0.0-0.4); EOS % 2.8 % (1.0-4.0); HEMATOCRIT 30.4 % (42.0-52.0); LYMPH # 1.6 10*3/uL (1.3-4.4); LYMPH % 22.9 % (27.0-41.0); MEAN CELL VOLUME 89.7 fl (80.0-94.0); MEAN CORPUSCULAR HGB 30.1 pg (27.0-31.0); MEAN CORPUSCULAR HGB CONC 33.6 g/dl (33.0-37.0); MEAN PLATELET VOLUME 11.4 fl (9.6-12.3); MONO # 0.7 10*3/uL (0.1-1.0); NEUT # 4.3 10*3/uL (2.3-7.9); PLATELET COUNT AUTOMATED 118 10*3/uL (130-400); RED BLOOD COUNT 3.39 10*6/uL (4.50-5.90); RED CELL DISTRI WIDTH 15.4 % (0-14.5); WHITE BLOOD COUNT 6.9 10*3/uL (4.8-10.8)
[2020-04-21 07:11] LABS: ACT PARTIAL THROMBO TIME 44.2 SECONDS (20.0-32.1); INTERNATIONAL NORM RATIO 1.9 (2.0-3.5)
[2020-04-21 07:22] LABS: ALBUMIN 1.8 gm/dl (3.1-4.5); CHLORIDE 108 mmol/L (98-107); POTASSIUM 2.9 mmol/L (3.5-5.1); SODIUM 142 mmol/L (136-145)
[2020-04-21 07:29] LABS: ALKALINE PHOSPHATASE 121 U/L (45-117); BUN 10 mg/dl (7-24); CREATININE 0.96 mg/dL (0.70-1.30); SGOT/AST 56 IU/L (3-35); SGPT/ALT 30 U/L (12-78); TOTAL PROTEIN 5.2 gm/dL (6.4-8.2)
[2020-04-21 13:57] LABS: INTERNATIONAL NORM RATIO 1.7 (2.0-3.5)
[2020-04-21 15:44] LABS: INTERNATIONAL NORM RATIO 1.6 (2.0-3.5)
== END 2020-04-21 23:16 | disposition short-term general hospital (02) ==
LOC: ED 11:46 → 5E 13:40 → EDHOLD 13:40 → 5E 13:40
PROVIDERS: Internal Medicine; Nurse Practitioner; Social Worker Clinical; Student in an Organized Health Care Education/Training Program; ADMIT Internal Medicine; ATTEND Internal Medicine
DX: K72.90 Hepatic failure, unspecified without coma (principal); E11.649 Type 2 diabetes mellitus with hypoglycemia without coma; R06.82 Tachypnea, not elsewhere classified; E87.2 Acidosis; E80.6 Other disorders of bilirubin metabolism; R60.0 Localized edema; I10 Essential (primary) hypertension; I25.10 Atherosclerotic heart disease of native coronary artery without angina pectoris; K44.9 Diaphragmatic hernia without obstruction or gangrene; E78.5 Hyperlipidemia, unspecified; E11.40 Type 2 diabetes mellitus with diabetic neuropathy, unspecified; D64.9 Anemia, unspecified; I85.00 Esophageal varices without bleeding; M54.5 Low back pain; G89.29 Other chronic pain; Z87.891 Personal history of nicotine dependence; Z98.890 Other specified postprocedural states; Z95.5 Presence of coronary angioplasty implant and graft

== ENCOUNTER 2020-06-15 13:17 | Emergency (ER) | payer OTHER, MEDICARE ==
[~2020-06-15] VITALS: Wt 70.3 kg
[2020-06-15 13:55] LABS: BASO # 0.1 10*3/uL (0.0-0.1); BASO % 0.5 % (0.0-1.0); EOS # 0.1 10*3/uL (0.0-0.4); EOS % 1.1 % (1.0-4.0); HEMATOCRIT 33.1 % (42.0-52.0); LYMPH # 1.4 10*3/uL (1.3-4.4); LYMPH % 13.2 % (27.0-41.0); MEAN CELL VOLUME 92.7 fl (80.0-94.0); MEAN CORPUSCULAR HGB 31.7 pg (27.0-31.0); MEAN CORPUSCULAR HGB CONC 34.1 g/dl (33.0-37.0); MEAN PLATELET VOLUME 10.8 fl (9.6-12.3); MONO # 1.1 10*3/uL (0.1-1.0); MONO % 10.1 % (3.0-9.0); NEUT # 7.9 10*3/uL (2.3-7.9); NEUT % 74.5 % (47.0-73.0); PLATELET COUNT AUTOMATED 148 10*3/uL (130-400); RED BLOOD COUNT 3.57 10*6/uL (4.50-5.90); RED CELL DISTRI WIDTH 17.3 % (0-14.5); WHITE BLOOD COUNT 10.6 10*3/uL (4.8-10.8)
[2020-06-15 14:05] LABS: ACT PARTIAL THROMBO TIME 38.9 SECONDS (20.0-32.1); INTERNATIONAL NORM RATIO 1.3 (2.0-3.5)
[2020-06-15 14:12] LABS: ALBUMIN 1.7 gm/dl (3.1-4.5); ALKALINE PHOSPHATASE 303 U/L (45-117); BUN 15 mg/dl (7-24); CHLORIDE 99 mmol/L (98-107); CREATININE 1.25 mg/dL (0.70-1.30); POTASSIUM 4.6 mmol/L (3.5-5.1); SGOT/AST 54 IU/L (3-35); SGPT/ALT 29 U/L (12-78); SODIUM 129 mmol/L (136-145); TOTAL PROTEIN 7.2 gm/dL (6.4-8.2)
[2020-06-15 14:13] LABS: TROPONIN I < 0.015 ng/ml (<0.045)
[2020-06-15 19:47] VITALS: BP 110/56
== END 2020-06-15 20:16 | disposition short-term general hospital (02) ==
LOC: ED 13:17
PROVIDERS: Emergency Medicine
DX: C79.51 Secondary malignant neoplasm of bone (principal); C43.62 Malignant melanoma of left upper limb, including shoulder; I50.9 Heart failure, unspecified; G89.29 Other chronic pain; Z79.899 Other long term (current) drug therapy; Z79.82 Long term (current) use of aspirin; Z98.890 Other specified postprocedural states; Z95.5 Presence of coronary angioplasty implant and graft; Z87.891 Personal history of nicotine dependence

== ENCOUNTER 2020-07-20 23:46 | Emergency (ER) | payer OTHER, MEDICARE ==
[2020-07-21 00:26] LABS: HEMATOCRIT 34.3 % (42.0-52.0); MEAN CELL VOLUME 101.5 fl (80.0-94.0); MEAN CORPUSCULAR HGB 31.1 pg (27.0-31.0); MEAN CORPUSCULAR HGB CONC 30.6 g/dl (33.0-37.0); MEAN PLATELET VOLUME 12.7 fl (9.6-12.3); NUCLEATED RED BLOOD CELL 0.4 10*3/uL (0.0-0.0); NUCLEATED RED BLOOD CELL 2.6 % (0.0-0.0); PLATELET COUNT AUTOMATED 61 10*3/uL (130-400); RED BLOOD COUNT 3.38 10*6/uL (4.50-5.90); RED CELL DISTRI WIDTH 21.3 % (0-14.5); WHITE BLOOD COUNT 13.4 10*3/uL (4.8-10.8)
[2020-07-21 00:43] LABS: CREATININE 2.78 mg/dL (0.70-1.30)
[2020-07-21 00:44] LABS: ALBUMIN 1.1 gm/dl (3.1-4.5); TOTAL PROTEIN 4.7 gm/dL (6.4-8.2)
[2020-07-21 00:46] LABS: POTASSIUM 6.5 mmol/L (3.5-5.1)
[2020-07-21 00:46] LABS: TROPONIN I 0.024 ng/ml (<0.045)
[2020-07-21 00:54] LABS: ATYPICAL LYMPHS 1 % (0-0); BURR CELLS MODERATE; PLATELET SUFFICIENCY LOW (NORMAL); TOTAL CELLS COUNTED 100 #CELLS
[2020-07-21 01:43] VITALS: BP 51/33
== END 2020-07-21 02:27 ==
LOC: ED 23:46
PROVIDERS: Internal Medicine
DX: I46.9 Cardiac arrest, cause unspecified (principal); N17.9 Acute kidney failure, unspecified; E87.8 Other disorders of electrolyte and fluid balance, not elsewhere classified; R79.89 Other specified abnormal findings of blood chemistry; Z79.899 Other long term (current) drug therapy; Z79.84 Long term (current) use of oral hypoglycemic drugs; Z98.890 Other specified postprocedural states; Z95.818 Presence of other cardiac implants and grafts